=== PATIENT | male | born 1955 | race Two or more races ===

== ENCOUNTER 2021-11-03 10:36 | Inpatient (IN) | payer MEDICAID ==
[~2021-11-03] VITALS: Ht 170.2 cm; Wt 68.1 kg
[~2021-11-03 10:36] MED LIST: ARIP1TAB7 PO; LEVO150T10 PO; MIRT-66 PO
[2021-11-03] MEDS ORDERED: SODIUM CHLORIDE 0.9% 1,000 ML IVB ONE (11:00)
[2021-11-03 11:45] LABS: Basophils # (auto) 0 10 ^3/uL (0-0.2); Eosinophils # (auto) 0 10 ^3/uL (0-0.8); Eosinophils % (auto) 0.1 % (0.0-7.0); Lymphocytes # (auto) 0.7 10 ^3/uL (0.4-5.4); Nucleated Red Blood Cells % 0.1 %
[2021-11-03 11:46] LABS: Basophils % (auto) 0.1 % (0.0-2.0); Hematocrit 22.2 % (41.0-53.0); Hemoglobin 7.4 g/dL (13.5-17.5); Lymphocytes % (auto) 4.4 % (10.0-50.0); Mean Corpuscular Hemoglobin 34.3 pg (28.0-32.0); Mean Corpuscular Hgb Conc. 33.2 g/dL (32.0-36.0); Mean Corpuscular Volume 103.3 fL (80.0-100.0); Monocytes # (auto) 1.3 10 ^3/uL (0-1.3); Monocytes % (auto) 8.5 % (0.0-12.0); Neutrophils # (auto) 13.1 10 ^3/uL (1.6-8.6); Neutrophils % (auto) 86.9 % (37.0-80.0); Red Blood Cells 2.15 10^6/uL (4.5-5.90); White Blood Cell 15.1 10^3/uL (4.4-10.8)
[2021-11-03 11:55] LABS: Albumin 2.9 g/dL (3.4-5.0); Magnesium 3.6 mg/dL (1.6-2.6); Potassium 3.5 mmol/L (3.5-5.1)
[2021-11-03 12:02] LABS: Bilirubin, Total 0.4 mg/dL (0.2-1.0); Total Protein 6.2 g/dL (6.4-8.2)
[2021-11-03 12:10] LABS: INR 1.23 (0.9-1.15); Lactic Acid w/Reflex 14.8 mmol/L (0.4-2.0); Partial Thromboplastin Time 30.2 sec (23.6-33.0)
[2021-11-03] MEDS ORDERED: SODIUM CHLORIDE 0.9% 1,000 ML IV ONE (12:30)
[2021-11-03] MEDS ORDERED: cefTRIAXone 1GM/50ML D5W 50 ML IV ONE ×2 (12:30→23:15)
[2021-11-03] MEDS ORDERED: IODIXANOL 320MG/ML 100ML BTL IV ONE (14:52)
[2021-11-03] MEDS ORDERED: SODIUM CHLORIDE 0.9% 2,000 ML IV ONE ×2 (16:15→17:00)
[2021-11-03 16:31] LABS: Urine Bacteria FEW /hpf (None Seen); Urine Blood 3+ /uL (Negative); Urine Hyaline Cast MOD /lpf (0 - 2); Urine Mucus FEW (None Seen); Urine Specific Gravity 1.028 (1.001-1.035); Urine WBC 2 /hpf (0 - 3)
[2021-11-03] MEDS ORDERED: NITROGLYCERIN 0.4 MG SL TAB SL PRN (17:00)
[2021-11-03] MEDS ORDERED: DEXTROSE (50%) 50ML SYRG IV PRN (17:00)
[2021-11-03] MEDS ORDERED: MORPHINE SULFATE INJECTION 2 MG/ML SYRG IV PRN ×3 (17:00→19:00)
[2021-11-03] MEDS: InsuLIN REG 1unit/0.01ml Soln (100units/ml) SC SCH ×2 (17:00→22:32)
[2021-11-03 18:33] VITALS: BP 102/65
[2021-11-03] MEDS: ACCU-CHEK COMFORT CURVE STRIP VI SCH ×2 (18:44→22:32)
[2021-11-03] MEDS ORDERED: ONDANSETRON HCL 4 MG/2 ML VIAL IV PRN ×2 (18:45→19:00)
[2021-11-03 18:54] VITALS: BP 108/72
[2021-11-03] MEDS ORDERED: HYDROcodone-ACET 5/325MG TAB PO PRN (19:00)
[2021-11-03] MEDS ORDERED: IPRATROPIUM BROM 0.5 MG/2.5ML INH SOL NEB ONE (19:00)
[2021-11-03] MEDS ORDERED: DOCUSATE SOD 100 MG CAP PO PRN (19:00)
[2021-11-03] MEDS ORDERED: LACTULOSE 20Gm/30ML SOLN PO PRN (19:00)
[2021-11-03] MEDS ORDERED: FAMOTIDINE (10MG/ML) 2ML VL IV ONE (19:00)
[2021-11-03] MEDS ORDERED: hydrALAZINE HCL 20 MG/ML VL IV PRN (19:00)
[2021-11-03] MEDS ORDERED: METOPROLOL SUCCINATE XL 50 MG TAB PO ONE (19:00)
[2021-11-03] MEDS ORDERED: LORazepam 0.5 MG TAB PO PRN (19:00)
[2021-11-03] MEDS ORDERED: HYDROcodone-ACET 5/325MG TAB PO ONE (19:00)
[2021-11-03 20:24] LABS: Magnesium 2.4 mg/dL (1.6-2.6); Phosphorus 5.1 mg/dL (2.5-4.90)
[2021-11-03 20:45] VITALS: BP 121/78
[2021-11-03] MEDS: HYDROcodone-ACET 5/325MG TAB PO PRN (21:15)
[2021-11-03] MEDS ORDERED: ENOXAPARIN SOD 60 MG/0.6 ML SYRINGE SC ONE (21:30)
[2021-11-03] MEDS ORDERED: IPRATROPIUM BROM 0.5 MG/2.5ML INH SOL NEB SCH (22:00)
[2021-11-03 22:37] LABS: INR 1.35 (0.9-1.15); Partial Thromboplastin Time 30.8 sec (23.6-33.0)
[2021-11-03] MEDS ORDERED: D5W 5% 1,000 ML IV SCH (22:45)
[2021-11-03] MEDS: ATORVASTATIN 20 MG TAB PO SCH (22:46)
[2021-11-03] MEDS ORDERED: SODIUM CHLORIDE 0.9% 1,000 ML IV SCH (23:00)
[2021-11-03] MEDS ORDERED: chlordiazePOXIDE HCL 25 MG CAP PO SCH (23:00)
[2021-11-03] MEDS ORDERED: FOLIC ACID 1 MG TAB PO ONE (23:15)
[2021-11-03] MEDS ORDERED: MULTIPLE VITAMINS W/ MINERALS TAB PO ONE (23:15)
[2021-11-03] MEDS ORDERED: THIAMINE 100mg/ml INJ (200mg/2ml VIAL) IV ONE (23:15)
[2021-11-03] MEDS ORDERED: BUDESONIDE (INHALATION) 0.5 MG/2 ML NEB NEB ONE (23:15)
[2021-11-03] MEDS ORDERED: PANTOPRAZOLE 40 MG/10 ML VIAL INJ IV ONE (23:15)
[2021-11-03] MEDS ORDERED: CLINDAMYCIN 300MG IV 50 ML IV ONE (23:15)
[2021-11-04 01:55] VITALS: BP 112/70
[2021-11-04 05:00] VITALS: BP 94/62
[2021-11-04] MEDS ORDERED: CLINDAMYCIN 300MG IV 50 ML IV SCH (06:00)
[2021-11-04 06:45] LABS: Basophils # (auto) 0 10 ^3/uL (0-0.2); Eosinophils # (auto) 0 10 ^3/uL (0-0.8); Eosinophils % (auto) 0.1 % (0.0-7.0); Hematocrit 23.4 % (41.0-53.0); Hemoglobin 8.1 g/dL (13.5-17.5); Lymphocytes # (auto) 0.2 10 ^3/uL (0.4-5.4); Mean Corpuscular Hemoglobin 33.3 pg (28.0-32.0); Mean Corpuscular Hgb Conc. 34.4 g/dL (32.0-36.0); Mean Corpuscular Volume 96.8 fL (80.0-100.0); Monocytes # (auto) 0.6 10 ^3/uL (0-1.3); Monocytes % (auto) 5.8 % (0.0-12.0); Neutrophils # (auto) 9.3 10 ^3/uL (1.6-8.6); Neutrophils % (auto) 92.1 % (37.0-80.0); Nucleated Red Blood Cells % 0.2 %; Red Blood Cells 2.42 10^6/uL (4.5-5.90); Red Cell Distribution Width 13.6 % (11.8-14.3); White Blood Cell 10.1 10^3/uL (4.4-10.8)
[2021-11-04] MEDS: LEVOTHYROXINE SODIUM 50 MCG TAB PO SCH (06:49)
[2021-11-04 06:50] LABS: Potassium 3.2 mmol/L (3.5-5.1)
[2021-11-04 06:52] LABS: INR 1.38 (0.9-1.15)
[2021-11-04] MEDS: InsuLIN REG 1unit/0.01ml Soln (100units/ml) SC SCH ×2 (06:52→22:13)
[2021-11-04] MEDS: ACCU-CHEK COMFORT CURVE STRIP VI SCH ×4 (07:00→22:22)
[2021-11-04 07:08] LABS: % Iron Saturation 24.6 % (20-55)
[2021-11-04 07:11] LABS: Albumin 2.2 g/dL (3.4-5.0); BUN/Creatinine Ratio 51.3; Bilirubin, Total 0.5 mg/dL (0.2-1.0); CRP High Sensitivity 3.41 mg/dL (< 0.3); Calcium 7.3 mg/dL (8.5-10.1); Magnesium 2.2 mg/dL (1.6-2.6); Phosphorus 2.6 mg/dL (2.5-4.90); Total Protein 4.6 g/dL (6.4-8.2); Uric Acid 11.6 mg/dL (3.5-7.2)
[2021-11-04 07:13] LABS: Thyroid Stimulating Hormone 5.46 uIU/mL (0.358-3.74)
[2021-11-04] MEDS: ALBUTEROL SULF 2.5 MG/0.5ML(0.5%) NEB SOLN NEB PRN ×3 (07:19→18:39)
[2021-11-04] MEDS: ACETYLCYSTEINE 10 %(100MG/ML) SOL 4ML NEB SCH ×2 (07:19→13:43)
[2021-11-04] MEDS: BUDESONIDE (INHALATION) 0.5 MG/2 ML NEB NEB SCH ×2 (07:19→18:40)
[2021-11-04 09:00] VITALS: BP 103/63
[2021-11-04] MEDS ORDERED: cefTRIAXone 1GM/50ML D5W 50 ML IV SCH (09:00)
[2021-11-04] MEDS ORDERED: chlordiazePOXIDE HCL 25 MG CAP PO SCH (09:00)
[2021-11-04] MEDS ORDERED: PANTOPRAZOLE 40 MG/10 ML VIAL INJ IV SCH (10:00)
[2021-11-04] MEDS ORDERED: METOPROLOL SUCCINATE XL 50 MG TAB PO SCH (10:00)
[2021-11-04] MEDS ORDERED: MORPHINE SULFATE INJECTION 2 MG/ML SYRG IV PRN ×2 (10:15→13:30)
[2021-11-04] MEDS: D5W/SOD CHLO 0.9% 1,000 ML IV SCH ×2 (10:39→20:40)
[2021-11-04] MEDS: FAMOTIDINE (10MG/ML) 2ML VL IV SCH (10:39)
[2021-11-04] MEDS: FOLIC ACID 1 MG TAB PO SCH (10:40)
[2021-11-04] MEDS: MULTIPLE VITAMINS W/ MINERALS TAB PO SCH (10:40)
[2021-11-04] MEDS: THIAMINE HCL 100 MG TAB PO SCH (10:40)
[2021-11-04 13:00] VITALS: BP 108/55
[2021-11-04] MEDS: Ensure HIGH Protein Chocolate 8oz Bottle PO SCH ×2 (13:30→18:33)
[2021-11-04 17:00] VITALS: BP 92/63
[2021-11-04] MEDS: SUCRALFATE 1 GM/10 ML ORAL SUSP PO SCH ×2 (18:20→22:11)
[2021-11-04 19:26] LABS: BUN/Creatinine Ratio 56.2; Calcium 7.7 mg/dL (8.5-10.1); Potassium 3.4 mmol/L (3.5-5.1)
[2021-11-04 21:16] LABS: Urine Bacteria FEW /hpf (None Seen); Urine Blood 2+ /uL (Negative); Urine Hyaline Cast FEW /lpf (0 - 2); Urine Specific Gravity 1.023 (1.001-1.035); Urine WBC 5 /hpf (0 - 3)
[2021-11-04 21:32] LABS: Amphetamine Screen, Urine NEGATIVE (NEGATIVE); Barbiturate Scree,Urine NEGATIVE (NEGATIVE); Benzodiazephine Screen, Urine POSITIVE (NEGATIVE); Cannabinoid Screen, Urine NEGATIVE (NEGATIVE); Cocaine Screen, Urine NEGATIVE (NEGATIVE); Opiate Scree,Urine POSITIVE (NEGATIVE)
[2021-11-04 21:34] LABS: Protein, Urine 58.6 mg/dL (0.0-11.9)
[2021-11-04 21:58] LABS: Phencyclidine Screen, Urine NEGATIVE (NEGATIVE)
[2021-11-04 22:00] VITALS: BP 111/61
[2021-11-04] MEDS: ATORVASTATIN 20 MG TAB PO SCH (22:11)
[2021-11-05] VITALS (14 sets, daily range): BP systolic 92–114; BP diastolic 56–71
[2021-11-05 06:00] LABS: Eosinophils # (auto) 0 10 ^3/uL (0-0.8); Lymphocytes # (auto) 0.3 10 ^3/uL (0.4-5.4); Monocytes # (auto) 0.9 10 ^3/uL (0-1.3); Monocytes % (auto) 5.7 % (0.0-12.0); Red Cell Distribution Width 13.8 % (11.8-14.3)
[2021-11-05 06:02] LABS: Basophils # (auto) 0 10 ^3/uL (0-0.2); Eosinophils % (auto) 0.1 % (0.0-7.0); Hematocrit 15.6 % (41.0-53.0); Lymphocytes % (auto) 1.9 % (10.0-50.0); Mean Corpuscular Hemoglobin 35.6 pg (28.0-32.0); Mean Corpuscular Volume 97.1 fL (80.0-100.0); Neutrophils # (auto) 13.8 10 ^3/uL (1.6-8.6); Neutrophils % (auto) 92.3 % (37.0-80.0); Nucleated Red Blood Cells % 0.4 %
[2021-11-05 06:24] LABS: % Iron Saturation 5.1 % (20-55)
[2021-11-05] MEDS: D5W/SOD CHLO 0.9% 1,000 ML IV SCH ×2 (06:24→09:45)
[2021-11-05] MEDS: ACCU-CHEK COMFORT CURVE STRIP VI SCH ×4 (06:25→22:45)
[2021-11-05] MEDS: SUCRALFATE 1 GM/10 ML ORAL SUSP PO SCH ×4 (06:27→22:04)
[2021-11-05] MEDS: LEVOTHYROXINE SODIUM 50 MCG TAB PO SCH (06:28)
[2021-11-05 06:32] LABS: Calcium 7.5 mg/dL (8.5-10.1); Potassium 3.3 mmol/L (3.5-5.1)
[2021-11-05 06:37] LABS: Hemoglobin 5.7 g/dL (13.5-17.5); Mean Corpuscular Hgb Conc. 36.6 g/dL (32.0-36.0)
[2021-11-05 06:50] LABS: BUN/Creatinine Ratio 61.1; Bilirubin, Total 0.3 mg/dL (0.2-1.0); Total Protein 4.4 g/dL (6.4-8.2)
[2021-11-05] MEDS: Ensure HIGH Protein Chocolate 8oz Bottle PO SCH ×3 (08:00→18:00)
[2021-11-05] MEDS: FOLIC ACID 1 MG TAB PO SCH (08:21)
[2021-11-05] MEDS: MULTIPLE VITAMINS W/ MINERALS TAB PO SCH (08:21)
[2021-11-05] MEDS: THIAMINE HCL 100 MG TAB PO SCH (08:21)
[2021-11-05] MEDS: HYDROcodone-ACET 5/325MG TAB PO PRN (08:22)
[2021-11-05] MEDS: FAMOTIDINE (10MG/ML) 2ML VL IV SCH (08:22)
[2021-11-05] MEDS ORDERED: POTASSIUM CHL 20 Meq TABLET PO ONE (09:45)
[2021-11-05] MEDS ORDERED: DOCUSATE SOD 100 MG CAP PO ONE (09:45)
[2021-11-05] MEDS ORDERED: chlordiazePOXIDE HCL 25 MG CAP PO SCH (10:00)
[2021-11-05] MEDS: BUDESONIDE (INHALATION) 0.5 MG/2 ML NEB NEB SCH ×2 (11:10→19:31)
[2021-11-05 17:13] LABS: Folate (Folic Acid) 8.21 ng/mL (5.38-24)
[2021-11-05] MEDS: ALBUTEROL SULF 2.5 MG/0.5ML(0.5%) NEB SOLN NEB PRN (19:31)
[2021-11-05 20:21] LABS: Hemoglobin 6.3 g/dL (13.5-17.5)
[2021-11-05] MEDS: SODIUM FERR GLUC 62.5MG/5ML 125 MG in SODIUM CHL 0.9% 100 ML IV ONE (21:15)
[2021-11-05] MEDS: ATORVASTATIN 20 MG TAB PO SCH (22:04)
[2021-11-05] MEDS: InsuLIN REG 1unit/0.01ml Soln (100units/ml) SC SCH (22:45)
[2021-11-06] VITALS (12 sets, daily range): BP systolic 94–111; BP diastolic 59–72
[2021-11-06] MEDS: SODIUM FERR GLUC 62.5MG/5ML 125 MG in SODIUM CHL 0.9% 100 ML IV ONE (00:51)
[2021-11-06] MEDS: ACCU-CHEK COMFORT CURVE STRIP VI SCH ×3 (06:00→18:08)
[2021-11-06] MEDS: SUCRALFATE 1 GM/10 ML ORAL SUSP PO SCH ×4 (06:17→21:07)
[2021-11-06] MEDS: LEVOTHYROXINE SODIUM 50 MCG TAB PO SCH (06:17)
[2021-11-06] MEDS: D5W/SOD CHLO 0.9% 1,000 ML IV SCH ×2 (06:17→12:25)
[2021-11-06] MEDS: BUDESONIDE (INHALATION) 0.5 MG/2 ML NEB NEB SCH ×2 (06:18→22:34)
[2021-11-06] MEDS: ALBUTEROL SULF 2.5 MG/0.5ML(0.5%) NEB SOLN NEB PRN ×2 (06:19→22:34)
[2021-11-06] MEDS: Ensure HIGH Protein Chocolate 8oz Bottle PO SCH ×3 (08:00→17:56)
[2021-11-06] MEDS: FOLIC ACID 1 MG TAB PO SCH (09:58)
[2021-11-06] MEDS: THIAMINE HCL 100 MG TAB PO SCH (09:58)
[2021-11-06] MEDS: MULTIPLE VITAMINS W/ MINERALS TAB PO SCH (09:58)
[2021-11-06] MEDS ORDERED: DOCUSATE SOD 100 MG CAP PO PRN (10:00)
[2021-11-06] MEDS ORDERED: chlordiazePOXIDE HCL 25 MG CAP PO SCH (10:00)
[2021-11-06] MEDS ORDERED: PANTOPRAZOLE 40 MG/10 ML VIAL INJ IV SCH (10:00)
[2021-11-06 10:25] LABS: Basophils # (auto) 0 10 ^3/uL (0-0.2); Eosinophils # (auto) 0 10 ^3/uL (0-0.8); Eosinophils % (auto) 0.2 % (0.0-7.0); Hematocrit 18.8 % (41.0-53.0); Lymphocytes # (auto) 0.3 10 ^3/uL (0.4-5.4); Monocytes # (auto) 0.8 10 ^3/uL (0-1.3); Neutrophils % (auto) 92.1 % (37.0-80.0)
[2021-11-06 10:28] LABS: Basophils % (auto) 0.2 % (0.0-2.0); Lymphocytes % (auto) 1.8 % (10.0-50.0); Mean Corpuscular Hemoglobin 31.3 pg (28.0-32.0); Mean Corpuscular Hgb Conc. 33.9 g/dL (32.0-36.0); Mean Corpuscular Volume 92.3 fL (80.0-100.0); Monocytes % (auto) 5.7 % (0.0-12.0); Neutrophils # (auto) 12.8 10 ^3/uL (1.6-8.6); Nucleated Red Blood Cells % 2.2 %; Red Blood Cells 2.04 10^6/uL (4.5-5.90); Red Cell Distribution Width 16.1 % (11.8-14.3); White Blood Cell 13.9 10^3/uL (4.4-10.8)
[2021-11-06 10:31] LABS: Hemoglobin 6.4 g/dL (13.5-17.5)
[2021-11-06 10:41] LABS: Albumin 1.7 g/dL (3.4-5.0); Calcium 7.7 mg/dL (8.5-10.1); Potassium 3.3 mmol/L (3.5-5.1)
[2021-11-06 10:45] LABS: BUN/Creatinine Ratio 68.8; Bilirubin, Total 0.5 mg/dL (0.2-1.0); Total Protein 4.3 g/dL (6.4-8.2)
[2021-11-06] MEDS ORDERED: SODIUM FERR GLUC 62.5MG/5ML 125 MG in SODIUM CHL 0.9% 100 ML IV SCH (12:00)
[2021-11-06] MEDS ORDERED: LIDOCAINE VISCOUS 2% 15ML UD ONE (12:39)
[2021-11-06] MEDS ORDERED: MIDAZOLAM HCL 5 MG/ML-1ML VIAL ONE (12:39)
[2021-11-06] MEDS ORDERED: diphenhdrAMINE HCL 50 MG/1 ML VL ONE (12:39)
[2021-11-06] MEDS ORDERED: fentaNYL CITRATE 100 MCG/2 ML VL ONE (12:40)
[2021-11-06] MEDS ORDERED: PROPOFOL 10 MG/ML 20 ML IV ONE (15:12)
[2021-11-06] MEDS ORDERED: ONDANSETRON HCL 4 MG/2 ML VIAL IV PRN (17:15)
[2021-11-06] MEDS ORDERED: MORPHINE SULFATE 4 MG/ML SYR/VIAL IV PRN ×2 (17:15)
[2021-11-06] MEDS ORDERED: CLINIMIX PER PHARMACY 0 ML IV SCH (17:30)
[2021-11-06] MEDS ORDERED: D5W/SOD CHLO 0.9% 1,000 ML IV SCH (18:00)
[2021-11-06] MEDS ORDERED: DEXTROSE (50%) 50ML SYRG IV SCH (18:00)
[2021-11-06] MEDS ORDERED: InsuLIN REG 1unit/0.01ml Soln (100units/ml) SC SCH (18:00)
[2021-11-06] MEDS: PANTOPRAZOLE 40mg/50ML NS AE 50 ML IV SCH ×2 (18:09→21:12)
[2021-11-06] MEDS: POTASSIUM CHL 10MEQ/50ML 50 ML IV SCH ×2 (19:02→21:25)
[2021-11-06] MEDS ORDERED: AMINO ACID INFUSION IN D10W 1,000 ML IV SCH (20:00)
[2021-11-06] MEDS: ATORVASTATIN 20 MG TAB PO SCH (21:07)
[2021-11-06 22:26] LABS: Hematocrit 19.1 % (41.0-53.0)
[2021-11-06 22:36] LABS: Hemoglobin 6.8 g/dL (13.5-17.5)
[2021-11-07] MEDS ORDERED: InsuLIN REG 1unit/0.01ml Soln (100units/ml) SC SCH
[2021-11-07 00:11] VITALS: BP 92/54
[2021-11-07] MEDS: ACCU-CHEK COMFORT CURVE STRIP VI SCH (00:19)
[2021-11-07 00:26] VITALS: BP 90/52
[2021-11-07 01:04] VITALS: BP 104/68
[2021-11-07] MEDS ORDERED: EPINEPHrine HCL 1 MG/10 ML SYRG IV ONE (04:27)
[2021-11-07] MEDS ORDERED: chlordiazePOXIDE HCL 25 MG CAP PO SCH (07:00)
== END 2021-11-07 04:28 | DRG 720 ==
LOC: EDBD 10:36 → ER 10:41 → TELE 16:49 → TELE-CENTR 23:41
PROVIDERS: ADMIT Hospitalist; ATTEND Internal Medicine
PROC: 30233N1 Transfusion of Nonautologous Red Blood Cells into Peripheral Vein, Percutaneous Approach (ICD-10-PCS; principal; 2021-11-03)
PROC: 0DB98ZX Excision of Duodenum, Via Natural or Artificial Opening Endoscopic, Diagnostic (ICD-10-PCS; 2021-11-06)
PROC: 0DB68ZX Excision of Stomach, Via Natural or Artificial Opening Endoscopic, Diagnostic (ICD-10-PCS; 2021-11-06)
PROC: 0DB38ZX Excision of Lower Esophagus, Via Natural or Artificial Opening Endoscopic, Diagnostic (ICD-10-PCS; 2021-11-06)
DX: A41.9 Sepsis, unspecified organism (principal); I21.4 Non-ST elevation (NSTEMI) myocardial infarction; G93.41 Metabolic encephalopathy; E43 Unspecified severe protein-calorie malnutrition; F10.231 Alcohol dependence with withdrawal delirium; I50.33 Acute on chronic diastolic (congestive) heart failure; I95.9 Hypotension, unspecified; M62.82 Rhabdomyolysis; K29.20 Alcoholic gastritis without bleeding; N17.9 Acute kidney failure, unspecified; D53.9 Nutritional anemia, unspecified; E86.0 Dehydration; Z20.822 Contact with and (suspected) exposure to COVID-19; D63.8 Anemia in other chronic diseases classified elsewhere; E03.9 Hypothyroidism, unspecified; E16.2 Hypoglycemia, unspecified; E87.6 Hypokalemia; F12.90 Cannabis use, unspecified, uncomplicated; F17.210 Nicotine dependence, cigarettes, uncomplicated; F20.9 Schizophrenia, unspecified; J43.9 Emphysema, unspecified; I71.2 Thoracic aortic aneurysm, without rupture; R31.9 Hematuria, unspecified; K26.9 Duodenal ulcer, unspecified as acute or chronic, without hemorrhage or perforation; K44.9 Diaphragmatic hernia without obstruction or gangrene; K52.9 Noninfective gastroenteritis and colitis, unspecified; R53.81 Other malaise; Z82.49 Family history of ischemic heart disease and other diseases of the circulatory system; Z68.23 Body mass index [BMI] 23.0-23.9, adult; I69.393 Ataxia following cerebral infarction
CPT/HCPCS: 36415; 36430; 36600; 43239; 70450; 71045; 71260; 74176; 74177; 76775; 80048; 80053; 80061; 80307; 81001; 82270; 82550; 82570; 82607; 82728; 82746; 82805; 82962; 83540; 83550; 83605; 83615; 83690; 83735; 83880; 84100; 84156; 84300; 84443; 84484; 84550; 85014; 85018; 85025; 85379; 85610; 85652; 85730; 86141; 86850; 86900; 86901; 86920; 87040; 87086; 87426; 93005; 93306; 93925; 94640; 96361; 96365; 99291; C9113; G0378; J0696; J1815; J2250; J2704; J3490; J7042; Q9967